=== PATIENT | female | born 1975 | race Caucasian/White ===

== ENCOUNTER 2017-02-19 08:44 | Emergency (ER) | payer OTHER ==
[~2017-02-19] VITALS: Ht 170.2 cm; Wt 83.5 kg
[~2017-02-19 08:44] MED LIST: HYDR-3498 PO; NAPR-688 PO; ONDA4TAB35 PO
[2017-02-19 08:58] VITALS: Ht 170.2 cm; Wt 83.5 kg
[2017-02-19] MEDS ORDERED: DIPHTH/TET/ACEL PERTUSS (ADULT) 0.5 ML VIAL IM* ONE (10:30)
[2017-02-19] MEDS ORDERED: IBUPROFEN 600 MG TAB PO ONE (11:00)
[2017-02-19] MEDS ORDERED: BACI28.34 TOP (11:04)
--- NOTE | 2017-02-19 14:17 | ERD ---
ER Documentation Chief Complaint Date/Time DATE: 02/19/17 TIME: 14:13 Chief Complaint Complains of laceration to left forearm HPI This patient is a 41-year-old female with no significant medical history presenting to the emergency department with complaints of laceration to the left forearm which occurred yesterday at approximately 7 PM. The patient is now presenting approximately 15 hours post injury. This occurred while she was at work and she cut it on a cardboard box. The patient's tetanus is not up-to- date. There was no significant bleeding. The patient reports only mild pain. The patient has had no loss of function of her extremity. No other complaints currently. ROS All systems reviewed and are negative except as per history of present illness. Medications Home Meds Active Scripts Bacitracin* (Bacitracin Zinc Oint*) 28.35 Gm Oint, 1 APPLIC TOP BID for 7 Days, #1 TUB APPLI TO Prov:JONATAN CANALES PA-C 02/19/17 Ondansetron Hcl* (Zofran* ODT) 4 mg -ODT Tab.disper, 4 MG PO Q6 Y for NAUSEA AND /OR VOMITING, #10 TAB Prov:KATE LAURENT DO 01/23/16 Naproxen* (Naproxen*) 500 Mg Tablet, 500 MG PO BID Y for PAIN, #20 TAB Prov:KATE LAURENT DO 16 Hydrocodone Bit-Acetaminophen* ([place]*) 5-325 Mg Tab, 1 TAB PO Q6 Y for PAIN, # 24 TAB Prov:KATE LAURENT DO 16 Allergies Allergies: Coded Allergies: No Known Allergy (Unverified , 07/03/14) PMhx/Soc History of Surgery: Yes (APPENDIX; BREAST CYST; hysterectomy) Anesthesia Reaction: No Hx Neurological Disorder: No Hx Respiratory Disorders: No Hx Cardiac Disorders: No Hx Psychiatric Problems: No Hx Miscellaneous Medical Probl: No Hx Alcohol Use: No Hx Substance Use: No Hx Tobacco Use: Yes (4-5/day) Smoking Status: Never smoker FmHx Noncontributory for chief complaint Physical Exam Vitals Vital Signs Date Time Temp Pulse Resp B/P Pulse Ox O2 Delivery O2 Flow Rate FiO2 02/19/17 08:58 98.5 55 20 103/50 98 Physical Exam Const: The patient is resting comfortable in no acute distress. Head: Atraumatic Eyes: Normal Conjunctiva ENT: Normal External Ears, Nose and Mouth. Neck: Full range of motion..~ No meningismus. Resp: Clear to auscultation bilaterally Cardio: Regular rate and rhythm, no murmurs Abd: Soft, non tender, non distended. Normal bowel sounds Skin: No petechiae or rashes. There is an approximate 3 cm superficial laceration to the left forearm with no active bleeding. There appears to be no tendon or ligamental involvement. Sensation is intact and no evidence of foreign body. Back: No midline or flank tenderness Ext: No cyanosis, or edema. There is an approximate 3 cm superficial laceration to the left forearm with no active bleeding. There appears to be no tendon or ligamental involvement. Sensation is intact and no evidence of foreign body. Neur: Awake and alert Psych: Normal Mood and Affect Results 24 hrs Current Medications Medications (Trade) Dose Ordered Sig/Tjeal Route PRN Reason Start Time Stop Time Status Last Admin Dose Admin Diphtheria/ Tetanus/Acell Pertussis (Adacel) 0.5 ml ONCE ONCE IM* 02/19/17 10:30 02/19/17 10:31 DC 02/19/17 10:33 Ibuprofen (Motrin) 600 mg ONCE ONCE PO 02/19/17 11:00 02/19/17 11:08 DC 02/19/17 10:53 Procedures/MDM This patient is a 41-year-old female presenting to the emergency department secondary to complaints of laceration of the left forearm. Tetanus is not up-to -date. Tdap was updated in the department. On physical examination there is a 3 cm superficial laceration to the left forearm with no active bleeding. There appears to be no tendon or ligamental involvement. Sensation is intact and no evidence of foreign body. Since it is 15 hours post injury sutures are not indicated at this time. The patient was repaired with Steri-Strips in the department. These were placed by [facility] emergency department tech. Before placement the wound was irrigated copiously with Betadine and normal saline. The patient was told to follow-up within 48 hours for wound recheck. The patient was given bacitracin prescription for outpatient management of the laceration. I have low suspicion for ligamental or tendon involvement or foreign body. I low suspicion for cellulitis or septicemia. The patient agrees with the discharge plan and diagnosis. Strict ER return precautions discussed and the patient is to follow-up with her primary care physician closely. Departure Diagnosis: Primary Impression: Laceration Condition: Fair Patient Instructions: Laceration, All, Laceration, Face (Suture Or Tape) Additional Instructions: Please return in 48 hours for repeat evaluation of wound. Keep the wound clean, dry, and covered. Use bacitracin ointment on wound twice daily for 5 days once Steri-Strips are removed. Follow up with your PCP within the next 1-3 days for a more thorough evaluation and a possible referral to a specialist. Return the the emergency department immediately if symptoms worsen or change. If you have any questions regarding medications, ask your pharmacist or us before you leave. If any adverse reactions, occur while taking your medications, discontinue the treatment and return to the emergency department immediately. If any new or worsening symptoms, uncontrolled fevers, or other unexplained symptoms occur, return to the emergency department immediately. Take your medications as directed, and complete the entire course of treatment. JONATAN CANALES PA-C February 19, 2017 14:17
== END 2017-02-19 11:32 | disposition home or self-care (01) ==
LOC: FTE 08:44
DX: S51.812A Laceration without foreign body of left forearm, initial encounter (principal); W22.8XXA Striking against or struck by other objects, initial encounter; Y92.89 Other specified places as the place of occurrence of the external cause; Z23 Encounter for immunization
CPT/HCPCS: 90471; 90715; Z7502; Z7610

== ENCOUNTER 2017-12-23 12:55 | Inpatient (IN) | END 2018-01-01 19:40 | disposition home or self-care (01) | DRG 418 ==

== ENCOUNTER 2018-01-08 13:36 | Inpatient (IN) | END 2018-01-17 14:25 | disposition home or self-care (01) | DRG 357 ==

== ENCOUNTER 2018-03-11 10:06 | Emergency (ER) | END 2018-03-11 17:56 | disposition home or self-care (01) ==

== ENCOUNTER 2018-05-21 12:51 | Day surgery (SDC) | END 2018-05-21 17:24 | disposition home or self-care (01) ==

== ENCOUNTER 2018-09-30 21:05 | Emergency (ER) | END 2018-10-01 00:51 | disposition home or self-care (01) ==

== ENCOUNTER 2019-03-05 08:18 | Emergency (ER) | payer MEDICAID, OTHER ==
[~2019-03-05] VITALS: Ht 165.1 cm; Wt 88.7 kg
[~2019-03-05 08:18] MED LIST changes: -HYDR-3498 PO; +HYDR-3980 PO; +HYDR-4011 PO; -NAPR-688 PO; -ONDA4TAB35 PO; +PANT40TA3 PO; +SUCR1TAB56 PO
[2019-03-05 08:27] VITALS: Ht 165.1 cm; Wt 88.7 kg
--- NOTE | 2019-03-05 09:07 | ERD ---
ER Documentation Chief Complaint Chief Complaint INTERMITTENT 07/31 EIPGASRTIC PAIN STARTING THIS MORNING HPI 43-year-old woman complains of sharp burning epigastric abdominal pain beginning this morning with few episodes of clear nonbloody nonbilious emesis. She states she has had multiple similar episodes in the past and has a history of biliary stone status post cholecystectomy. Patient denies blood per rectum or melena, no fevers or chills, no chest pain or shortness of breath, no headache or blurry vision, no dysuria. Patient used oral [place] at home without relief ROS All systems reviewed and are negative except as per history of present illness. Medications Home Meds Active Scripts Ondansetron Hcl* (Zofran*) 4 Mg Tablet, 4 MG PO Q8H PRN for NAUSEA AND/OR VOMI TING, #30 TAB Prov:ANURAG BARROSO MD 03/05/19 Mag Hydrox/Al Hydrox/Simeth (Maalox Advanced Suspension) 355 Ml Oral.susp, 2 TSP PO TID PRN for PAIN, #20 OZ Prov:ANURAG BARROSO MD 03/05/19 Ibuprofen* (Motrin*) 600 Mg Tab, 600 MG PO Q8 PRN for PAIN AND/OR INFLAMMATION, #30 TAB Prov:ANURAG BARROSO MD 03/05/19 Oxycodone HCl/Acetaminophen (Percocet 5-325 mg Tablet) 1 Each Tablet, 1 EACH PO TID PRN for PAIN AND/OR INFLAMMATION, #12 TAB Prov:ANURAG BARROSO MD 03/05/19 Discontinued Scripts Pantoprazole* (Protonix*) 40 Mg Tablet.dr, 40 MG PO DAILY, #20 TAB Prov:JONATAN WOODARD 10/01/18 Hydrocodone/Acetaminophen ([place] 10-325 Tablet) 1 Each Tablet, 1 TAB PO Q6H PRN for PAIN, #7 TAB Prov:JONATAN WOODARD 10/01/18 Sucralfate* (Carafate*) 1 Gm Tab, 1 GM PO QID, #60 TAB Prov:JONATAN WOODARD 10/01/18 Hydrocodone/Acetaminophen ([place] 5-325 Tablet) 1 Each Tablet, 1 TAB PO Q6H PRN for PAIN, #7 TAB Prov:CATHERINE CUELLO MD 03/11/18 Allergies Allergies: Coded Allergies: No Known Allergy (Unverified , 03/05/19) PMhx/Soc history of obstructive cholelithiasis status post ERCP and ductal clearance by balloon sweep History of Surgery: Yes (CHOLECYSTECTOMY, PARTIAL HYSTERECTOMY) Anesthesia Reaction: No Hx Neurological Disorder: No Hx Respiratory Disorders: No Hx Cardiac Disorders: No Hx Psychiatric Problems: No Hx Miscellaneous Medical Probl: No Hx Alcohol Use: Yes (OCC) Hx Substance Use: No Hx Tobacco Use: Yes (ONE PER DAY) Smoking Status: Current some day smoker FmHx Family History: No diabetes Physical Exam Vitals Vital Signs Date Temp Pulse Resp B/P (MAP) Pulse Ox O2 O2 Flow FiO2 Time Delivery Rate 03/05/19 97.7 78 18 95/67 (76) 98 Room Air 12:00 03/05/19 98.7 100 20 152/66 100 08:27 (94) Physical Exam GENERAL: Well-developed, well-nourished, mild discomfort, afebrile HEENT: Moist mucous membranes, pink conjunctiva, no cervical spine tenderness or step-off deformities, no goiter, no jaundice or icterus, extraocular movements intact without pain. No submandibular induration, and no pharyngeal erythema NEURO: Alert and oriented 3, cranial nerves II through XII intact bilaterally, pupils equal round reactive to light, no focal deficits or facial asymmetry, sensation intact distally Strength 5/5 in upper and lower extremities bilaterally CARDIAC: Regular rate and rhythm, no murmurs rubs or gallops LUNGS: Clear bilaterally no wheezing crackles or stridor ABDOMEN: Soft nontender, no guarding, no rigidity, no rebound, no psoas sign no obturator sign. Normoactive bowel sounds SKIN: Warm and dry to touch, no abrasions, contusions, or hematomas, no lacerations, no ecchymosis, no target lesions, and without ulcers EXTREMITIES: No clubbing cyanosis or edema, calves are bilaterally symmetrical, no Homans sign, no popliteal cord sign. Distal pulses equal and bilateral PSYCH: Normal affect without agitation or irritability Result Diagram: 03/05/1992703/05/1928 Results 24 hrs Laboratory Tests Test 03/05/19 09:15 03/05/19 09:28 POC Beta HCG, Qualitative NEGATIVE White Blood Count 9.7 10^3/ul Red Blood Count 4.42 10^6/ul Hemoglobin 13.6 g/dl Hematocrit 40.1 % Mean Corpuscular Volume 90.7 fl Mean Corpuscular Hemoglobin 30.8 pg Mean Corpuscular Hemoglobin Concent 33.9 g/dl Red Cell Distribution Width 13.6 % Platelet Count 315 10^3/UL Mean Platelet Volume 9.7 fl Immature Granulocytes % 0.200 % Neutrophils % 65.2 % Lymphocytes % 27.8 % Monocytes % 5.9 % Eosinophils % 0.6 % Basophils % 0.3 % Nucleated Red Blood Cells % 0.0 /100WBC Immature Granulocytes # 0.020 10^3/ul Neutrophils # 6.4 10^3/ul Lymphocytes # 2.7 10^3/ul Monocytes # 0.6 10^3/ul Eosinophils # 0.1 10^3/ul Basophils # 0.0 10^3/ul Nucleated Red Blood Cells # 0.0 10^3/ul Prothrombin Time 11.8 Sec Prothrombin Time Ratio 0.9 INR International Normalized Ratio 0.86 Activated Partial Thromboplast Time 30.9 Sec Sodium Level 143 mmol/L Potassium Level 4.1 mmol/L Chloride Level 112 mmol/L Carbon Dioxide Level 21 mmol/L Anion Gap 10 Blood Urea Nitrogen 11 mg/dl Creatinine 0.49 mg/dl Est Glomerular Filtrat Rate mL/min > 60 mL/min Glucose Level 125 mg/dl Calcium Level 9.2 mg/dl Total Bilirubin 0.6 mg/dl Direct Bilirubin 0.00 mg/dl Indirect Bilirubin 0.6 mg/dl Aspartate Amino Transf (AST/SGOT) 174 IU/L Alanine Aminotransferase (ALT/SGPT) 77 IU/L Alkaline Phosphatase 122 IU/L Total Protein 7.2 g/dl Albumin 4.0 g/dl Globulin 3.20 g/dl Albumin/Globulin Ratio 1.25 Lipase 66 U/L Current Medications Medications Dose Sig/Tejal Start Time Status Last (Trade) Ordered Route PRN Stop Time Admin Dose Reason Admin Sodium 1,000 ml @ Q1H STAT 03/05/19 DC 03/05/19 Chloride 1,000 mls/hr IV 09:13 09:29 03/05/19 10:12 1 mg ONCE STAT 03/05/19 DC 03/05/19 Hydromorphone IV 09:13 09:30 HCl 03/05/19 09:14 (Dilaudid) Ondansetron 4 mg ONCE STAT 03/05/19 DC 03/05/19 HCl (Zofran IV 09:13 09:29 Inj) 03/05/19 09:14 40 ml ONCE STAT 03/05/19 DC 03/05/19 Miscellaneous PO 09:13 09:29 Medication 03/05/19 09:14 (Gi Cocktail (2)) Belladonna/ 2 tab ONCE STAT 03/05/19 DC 03/05/19 Phenobarbital PO 09:13 09:30 () 03/05/19 09:14 Procedures/MDM IV line was established patient was placed on monitoring and evaluation advisor rhythm strip revealed a sinus rhythm at about 80 bpm with upright P and T waves. Patient was afebrile I administered 1 L normal saline IV, hydromorphone 1 mg IV, Zofran 4 mg IV, GI cocktail p.o. CBC and electrolytes were normal, liver function tests revealed mild tr ansaminitis but bilirubin levels were normal. Patient has no signs, or symptoms of biliary obstruction and her vital signs are normal, pain is completely resolved. Patient is tolerating p.o. here in the ER and had no episodes of vomiting. Repeat abdominal exam was unremarkable and she will be discharged to follow-up with PMD. Differential diagnoses considered, included but not limited to acute coronary syndrome, pulmonary embolism, aortic dissection, abdominal aortic aneurysm, sepsis, stroke, meningitis, encephalitis, pneumonia, appendicitis, cholecystitis, bowel obstruction, pyelonephritis, nephrolithiasis, cystitis, as well as metabolic, hematologic, and electrolyte abnormalities. As well as abscess, cellulitis, fractures, and dislocations. Patient feels much better at this time, and vital signs are normal, symptoms have improved. I did give strict instructions to return to the ED if symptoms continue or worsen, patient will otherwise follow-up with primary care physician. Patient understood instructions and agreed to plan. Disclaimer: Inadvertent spelling and grammatical errors are likely due to EHR/dictation software use and do not reflect on the overall quality of patient care. Also, please note that the electronic time recorded on this note does not necessarily reflect the actual time of the patient encounter. Departure Diagnosis: Primary Impression: Abdominal pain Abdominal location: epigastric Qualified Codes: R10.13 - Epigastric pain Condition: Good ANURAG BARROSO MD March 05, 2019 09:07
[2019-03-05] MEDS ORDERED: SOD CHLORIDE 0.9% 1,000 ML IV STA (09:13)
[2019-03-05] MEDS ORDERED: BELLADONNA/PHENOBARBITAL TAB PO STA (09:13)
[2019-03-05] MEDS ORDERED: LIDOCAINE/MYLANTA 40 ML BTL PO STA (09:13)
[2019-03-05] MEDS ORDERED: ONDANSETRON 4 MG INJ IV STA (09:13)
[2019-03-05] MEDS ORDERED: HYDROmorphONE 1 MG/ML SYG IV STA (09:13)
[2019-03-05] MEDS ORDERED: ONDA4TAB8 PO (10:47)
[2019-03-05] MEDS ORDERED: MAG355OR14 PO (10:47)
[2019-03-05] MEDS ORDERED: OXYC-279 PO (10:47)
[2019-03-05] MEDS ORDERED: IBUP-1542 PO (10:47)
[2019-03-05 12:00] VITALS: BP 95/67; PULSE 78; RESP 18
== END 2019-03-05 12:00 | disposition home or self-care (01) ==
LOC: E/R 08:18
DX: R10.13 Epigastric pain (principal); F17.210 Nicotine dependence, cigarettes, uncomplicated
CPT/HCPCS: 36415; 80053; 81025; 83690; 85025; 85610; 85730; 96374; 96375; J1170; J2405; J7030; Z7502; Z7610